=== PATIENT | male | born 1980 | race Caucasian/White ===

== ENCOUNTER → 2018-09-28 16:54 | Outpatient (CLI) | payer OTHER, SELFPAY ==
--- NOTE | 2018-09-28 17:05 | RAD_ITS ---
HISTORY: LEFT SHOULDER PAIN S/P LIFTING INJURY X2 MONTHS AGO COMPARISON: None FINDINGS: XR Shoulder 4 views No fracture or bony abnormality. The left glenohumeral relationship appears normal. Left AC joint is preserved. No soft tissue calcifications. IMPRESSION: Normal exam, left shoulder. at 9225 Reported and signed by: Jerry Amin MD Electronically Signed: Jerry Amin, at 3:23 EST Tel , Service support , RAD/Shoulder min 2 Views
--- OUTSIDE RECORDS SUMMARY | 2018-11-24 03:08 | XMS RPT_ITS | Continuity of Care Document ---
:1980 Author Organization [facility] Address [facility] [address] Phone Care Team Providers Name Role Phone Katherine NASCIMENTO, Pearl Unavailable Benitez MORE, Vesna Allen Unavailable Ryan Becerra Unavailable Unavailable Slamarjan DRY JANITOR, Nirali Unavailable Unavailable Unavailable Unavailable Problems Name Dates Details Actinic keratosis (L57.0, 702.0) Status: Active BIPOLAR DISORDER, NOS (296.7) Comments: Dr. muse. send him message. doing well. Status: Active BMI 25.0-25.9,adult (Z68.25, V85.21) Status: Active Bronchitis (J40, 490) Status: Active BRONCHITIS, NOS (490.) (490) Status: Active Condyloma (A63.0, 078.11) Status: Active Congestion of nasal sinus (R09.81, 478.19) Status: Active Cough (R05, 786.2) Status: Active Encounter for routine history and physical exam for male (Z00.00, V70.0) Comments: told see every few years. nikolay about fertility because starting to have children. 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 condyloma vs other Status: Active Sore throat (J02.9, 462) Status: Active Unilateral inguinal hernia without obstruction or gangrene, recurrence not specified (K40.90, 550.90) Status: Active Medications Name Dates Details Depakote ER 250 MG Oral Tablet Extended Release 24 Hour Active daily (250 MG) Comments: Sugey Stinger RX Meloxicam 7.5 MG Oral Tablet 1 (one) Tablet daily for 0 days Quantity: 30 {Tablet} Refills: 0 Ordered:28-Sep-2018 Nita Murphy CNP, CNP, Mary E Start : 28-Sep-2018 Active Comments:with food Wellbutrin XL 150 MG Oral Tablet Extended Release 24 Hour daily (150 MG) Active Comments:Sugey Stinger rx BIAXIN XL PAC, 500MG (Oral Tablet Extended Release 24 Hour) 2 (two) Tablet ER 24HR daily for 10 days Quantity: 20 {Tablet_ER_24HR} Refills: 0 Ordered:02-Feb-2011 Kathia Kelly DO Start : 02-Feb-2011 End : 12-Feb-2011 Inactive CHERATUSSIN AC, 100-10MG/5ML (Oral Syrup) 1 Syrup q 6 hr prn for 0 days Quantity: 60 {Milliliter} Refills: 0 Ordered:02-Feb-2011 Sissy Faria LPN Start : 04-Dec-2010 End : 02-Feb-2011 Inactive Comments:sixty HYCODEN (Oral Syrup) (Free Text) 1 Teaspoon(s) q 6 hr prn for 0 days Quantity: 60 {Milliliter} Refills: 0 Ordered:25-Dec-2011 MUMTAZ Lazaro Start : 02-Feb-2011 End : 25-Dec-2011 Inactive Comments:sixty KEFLEX, 500MG (Oral Capsule) 1 (one) Capsule q12h for 7 days Quantity: 14 {Capsule} Refills: 0 Ordered:01-Jan-2014 Nita Murphy CNP, CNP, Mary E Start : 01-Jan-2014 End : 08-Jan-2014 Inactive PROVENTIL HFA, 108 (90 Base)MCG/ACT (Inhalation Aerosol Solution) 1 (one) Aerosol Soln 2 puffs bid for 0 days Quantity: 1 {Aerosol_Soln} Refills: 0 Ordered:28-Jan-2009 MUMTAZ Lazaro Start : 28-Jan-2009 End : 21-Oct-2009 Inactive RELAFEN, 750MG (Oral Tablet) 2 (two) Tablet QD for 0 days Quantity: 30 {Tablet} Refills: 1 Ordered:27-Dec-2009 Franchesca Jones Start : 21-Oct-2009 Inactive RISPERDAL, 0.5MG (Oral Tablet) 1 Tablet QD for 0 days Refills: 0 Ordered:15-Oct-2014 Holly Stephenson Start : 21-Oct-2009 End : 15-Oct-2014 Inactive VICODIN, 5-500MG (Oral Tablet) 1 to 2 tabs q 6hrs, prn for 0 days Refills: 0 Ordered:05-Jan-2008 Sissy Faria LPN End : 05-Jan-2008 Inactive Augmentin 875-125 MG Oral Tablet 1 (one) Tablet bid for 0 days Quantity: 28 {Tablet} Refills: 0 Ordered:08-Feb-2017 Nirali Smith LPN Start : 18-Oct-2015 End : 08-Feb-2017 Discontinued Depakote 500 MG Oral Tablet Delayed Release 1 1/2 QD for 0 days Refills: 0 Ordered:08-Feb-2017 SlaTerrance phillip LPNa End : 08-Feb-2017 Discontinued FLEXERIL, 10MG (Oral Tablet) 1 (one) Tablet Twice daily for 0 days Quantity: 20 {Tablet} Refills: 0 Ordered:05-Jan-2008 MUMTAZ Lazaro Start : 05-Jan-2008 End : 10-Feb-2008 Discontinued GUAIATUSSIN AC, 100-10MG/5ML (Oral Syrup) 1 Syrup 1 tsp qhs for 0 days Quantity: 6 {Ounce(s)} Refills: 0 Ordered:28-Jan-2009 Kathia Kelly DO Start : 28-Jan-2009 End : 02-Feb-2011 Discontinued Comments:This order discontinued per [facility]. GUAIATUSSIN AC, 100-10MG/5ML (Oral Syrup) 1 Syrup qhs prn for 0 days Quantity: 6 {Ounce(s)} Refills: 0 Ordered:3-Feb-2011 Sissy Faria XUAN Start : 20-Jan-2010 End : 04-Dec-2010 Discontinued Comments:This order discontinued per [facility]. LODINE XL, 400MG (Oral Tablet Extended Release 24 Hour) 2 (two) Tablet ER 24HR Daily for 0 days Quantity: 30 {Tablet_ER_24HR} Refills: 0 Ordered:05-Jan-2008 MUMTAZ Lazaro Start : 05-Jan-2008 End : 10-Feb-2008 Discontinued Mucinex 600 MG Oral Tablet Extended Release 12 Hour 1 (one) Tablet ER 12HR Tablet ER 12HR bid for 0 days Quantity: 30 {Tablet} Refills: 0 Ordered:08-Feb-2017 Nirali Smith LPN Start : 15-Oct-2014 End : 08-Feb-2017 Discontinued WELLBUTRIN, 100MG (Oral Tablet) 1 1/2 BID for 0 days Refills: 0 Ordered:08-Feb-2017 Nirali Smith LPN End : 08-Feb-2017 Discontinued Comments:This order discontinued per [facility]. Allergies and Adverse Reactions Name Dates Details No Known Drug Allergies (Allergy) Status: Active Past Medical History Name Dates Details Dysuria (R30.0, 788.1) Comments: ? STD ? urethritis?new condom Status: Resolved as of 21-Mar-2009 genital warts Comments: did cryotx tell risk benefit. not want aldara talk about all the causes and about it Status: Inactive as of 21-Oct-2009 Hand trauma (S69.90XA, 959.4) Comments: rt thumb secondary to drill bit Status: Inactive as of 15-Oct-2014 Muscle spasm (M62.838, 728.85) Status: Inactive as of 21-Mar-2009 Neck pain (M54.2, 723.1) Status: Inactive as of 21-Mar-2009 Neoplasm of uncertain behavior of skin (D48.5, 238.2) Comments: not resolve with cryotherapy. remove and send. 6 mm Status: Inactive as of 21-Mar-2009 Sebaceous cyst (L72.3, 706.2) Comments: no evidence of infection - has doubled in size - will referral for removal- referral office to find facial plastics doctor in [place] or [place] Status: Resolved as of 21-Mar-2009 Shoulder pain (M25.519, 719.41) Status: Inactive as of 21-Mar-2009 Family History Unknown Family Member Name Dates Details First Degree Relatives Comments: ETOH, Cancer Status: Active Social History Name Dates Details Caffeine Use Comments: 2 QD Status: Active Exercise History Comments: None Status: Active Living Situation Comments: Single, heterosexual Status: Active Most Recent Primary Occupation Comments: Student at [employer] Status: Active No Drug Use Status: Active Non Drinker/No Alcohol Use Status: Active Tobacco Use Comments: / pk QD Status: Active Vital Signs Date Test Result Details [id number] Temperature 97.7 f Pulse 72 /min Comments: Pattern: Regular Respiration Rate 16 /min Comments: Pattern: Unlabored O2 SAT 97 % Comments: Room air BP Systolic 118 mm[Hg] Comments: Patient Position: Sitting; Cuff Location: Left Arm; Cuff Size: Standard BP Diastolic 78 mm[Hg] Comments: Patient Position: Sitting; Cuff Location: Left Arm; Cuff Size: Standard Weight 170 lb Height 69 in Body Mass Index Calculated 25.1 kg/m2 Body Surface Area Calculated 1.93 m2 :59 Temperature 98 f Pulse 91 /min Comments: Pattern: Regular Respiration Rate 17 /min Comments: Pattern: Unlabored O2 SAT 97 % Comments: Room air BP Systolic 122 mm[Hg] Comments: Patient Position: Sitting; Cuff Location: Left Arm; Cuff Size: Standard BP Diastolic 82 mm[Hg] Comments: Patient Position: Sitting; Cuff Location: Left Arm; Cuff Size: Standard Weight 170 lb Height 69 in Body Mass Index Calculated 25.1 kg/m2 Body Surface Area Calculated 1.93 m2 58-Vlb-234330:51 Temperature 96.8 f Comments: Method: Temporal Pulse 84 /min Comments: Pattern: Regular Respiration Rate 15 /min Comments: Pattern: Unlabored O2 SAT 97 % Comments: Room air BP Systolic 140 mm[Hg] Comments: Patient Position: Sitting; Cuff Location: Left Arm; Cuff Size: Standard BP Diastolic 96 mm[Hg] Comments: Patient Position: Sitting; Cuff Location: Left Arm; Cuff Size: Standard Weight 167 lb Height 69 in Body Mass Index Calculated 24.66 kg/m2 Body Surface Area Calculated 1.91 m2 29-Xpp-593096:00 Temperature 97.5 f Comments: Method: Oral Pulse 68 /min Comments: Pattern: Regular Respiration Rate 18 /min Comments: Pattern: Unlabored O2 SAT 98 % Comments: Room air BP Systolic 116 mm[Hg] Comments: Patient Position: Sitting; Cuff Location: Left Arm; Cuff Size: Standard BP Diastolic 78 mm[Hg] Comments: Patient Position: Sitting; Cuff Location: Left Arm; Cuff Size: Standard Weight 180 lb Height 69 in Body Mass Index Calculated 26.58 kg/m2 Body Surface Area Calculated 1.98 m2 [id number]-[id number]:05 Temperature 97.9 f Comments: Method: Oral Pulse 78 /min Comments: Pattern: Regular Respiration Rate 16 /min BP Systolic 116 mm[Hg] Comments: Patient Position: Sitting; Cuff Location: Left Arm; Cuff Size: Standard BP Diastolic 72 mm[Hg] Comments: Patient Position: Sitting; Cuff Location: Left Arm; Cuff Size: Standard Weight 165 lb Height 69 in Body Mass Index Calculated 24.37 kg/m2 Body Surface Area Calculated 1.9 m2 :52 Temperature 98.8 f Comments: Method: Oral Pulse 72 /min Comments: Pattern: Regular Respiration Rate 16 /min Comments: Pattern: Unlabored BP Systolic 112 mm[Hg] Comments: Patient Position: Sitting; Cuff Location: Left Arm; Cuff Size: Standard BP Diastolic 64 mm[Hg] Comments: Patient Position: Sitting; Cuff Location: Left Arm; Cuff Size: Standard Weight 165 lb Height 69 in Body Mass Index Calculated 24.37 kg/m2 Body Surface Area Calculated 1.9 m2 :11 Pulse 68 /min Comments: Pattern: Regular Respiration Rate 20 /min Comments: Pattern: Unlabored BP Systolic 118 mm[Hg] Comments: Patient Position: Sitting; Cuff Location: Left Arm; Cuff Size: Large BP Diastolic 68 mm[Hg] Comments: Patient Position: Sitting; Cuff Location: Left Arm; Cuff Size: Large Weight 165 lb Height 69 in Body Mass Index Calculated 24.37 kg/m2 Body Surface Area Calculated 1.9 m2 :57 Temperature 98 f Comments: Method: Oral Pulse 68 /min Comments: Pattern: Regular Respiration Rate 20 /min Comments: Pattern: Unlabored BP Systolic 136 mm[Hg] Comments: Patient Position: Sitting; Cuff Location: Left Arm; Cuff Size: Large BP Diastolic 82 mm[Hg] Comments: Patient Position: Sitting; Cuff Location: Left Arm; Cuff Size: Large :51 Temperature 97.1 f Comments: Method: Oral Pulse 64 /min Comments: Pattern: Regular Respiration Rate 14 /min Comments: Pattern: Unlabored BP Systolic 122 mm[Hg] Comments: Patient Position: Sitting; Cuff Location: Left Arm; Cuff Size: Large BP Diastolic 64 mm[Hg] Comments: Patient Position: Sitting; Cuff Location: Left Arm; Cuff Size: Large :48 Temperature 97.7 f Comments: Method: Oral Pulse 60 /min Comments: Pattern: Regular Respiration Rate 18 /min Comments: Pattern: Unlabored BP Systolic 116 mm[Hg] Comments: Patient Position: Sitting; Cuff Location: Left Arm; Cuff Size: Large BP Diastolic 72 mm[Hg] Comments: Patient Position: Sitting; Cuff Location: Left Arm; Cuff Size: Large :10 Temperature 97.9 f Comments: Method: Oral Pulse 64 /min Comments: Pattern: Regular Respiration Rate 16 /min Comments: Pattern: Unlabored BP Systolic 106 mm[Hg] Comments: Patient Position: Sitting; Cuff Location: Left Arm; Cuff Size: Large BP Diastolic 64 mm[Hg] Comments: Patient Position: Sitting; Cuff Location: Left Arm; Cuff Size: Large :24 Pulse 70 /min Comments: Pattern: Regular Respiration Rate 16 /min Comments: Pattern: Unlabored BP Systolic 118 mm[Hg] Comments: Patient Position: Sitting; Cuff Location: Left Arm; Cuff Size: Standard BP Diastolic 78 mm[Hg] Comments: Patient Position: Sitting; Cuff Location: Left Arm; Cuff Size: Standard Weight 0 lb Height 0 in Head Circumference 0.00 cm :57 Temperature 97.7 f Comments: Method: Oral Pulse 79 /min Comments: Pattern: Regular Respiration Rate 18 /min Comments: Pattern: Unlabored O2 SAT 98 % Comments: Room air BP Systolic 110 mm[Hg] Comments: Patient Position: Sitting; Cuff Location: Left Arm; Cuff Size: Large BP Diastolic 70 mm[Hg] Comments: Patient Position: Sitting; Cuff Location: Left Arm; Cuff Size: Large Weight 179.125 lb Height 69 in Body Mass Index Calculated 26.45 kg/m2 Body Surface Area Calculated 1.97 m2 Head Circumference 0.00 cm :20 Pulse 76 /min Comments: Pattern: Regular Respiration Rate 16 /min Comments: Pattern: Unlabored BP Systolic 116 mm[Hg] Comments: Patient Position: Sitting; Cuff Location: Left Arm; Cuff Size: Standard BP Diastolic 78 mm[Hg] Comments: Patient Position: Sitting; Cuff Location: Left Arm; Cuff Size: Standard Weight 0 lb Height 0 in Head Circumference 0.00 cm :43 Temperature 98.2 f Comments: Method: Oral Pulse 74 /min Comments: Pattern: Regular Respiration Rate 18 /min Comments: Pattern: Unlabored BP Systolic 118 mm[Hg] Comments: Patient Position: Sitting; Cuff Location: Left Arm; Cuff Size: Standard BP Diastolic 74 mm[Hg] Comments: Patient Position: Sitting; Cuff Location: Left Arm; Cuff Size: Standard Weight 0 lb Height 0 in Head Circumference 0.00 cm :55 Pulse 72 /min Comments: Pattern: Regular Respiration Rate 16 /min Comments: Pattern: Unlabored BP Systolic 110 mm[Hg] Comments: Patient Position: Sitting; Cuff Location: Left Arm; Cuff Size: Large BP Diastolic 62 mm[Hg] Comments: Patient Position: Sitting; Cuff Location: Left Arm; Cuff Size: Large Weight 163.5625 lb Height 69 in Body Mass Index Calculated 24.15 kg/m2 Body Surface Area Calculated 1.9 m2 Head Circumference 0.00 cm :03 Temperature 97.3 f Comments: Method: Oral Pulse 64 /min Comments: Pattern: Regular Respiration Rate 18 /min Comments: Pattern: Unlabored BP Systolic 112 mm[Hg] Comments: Patient Position: Sitting; Cuff Location: Right Arm; Cuff Size: Standard BP Diastolic 76 mm[Hg] Comments: Patient Position: Sitting; Cuff Location: Right Arm; Cuff Size: Standard Weight 0 lb Height 0 in Head Circumference 0.00 cm :16 Temperature 98.4 f Comments: Method: Oral Pulse 70 /min Comments: Pattern: Regular Respiration Rate 18 /min Comments: Pattern: Unlabored BP Systolic 110 mm[Hg] Comments: Patient Position: Sitting; Cuff Location: Left Arm; Cuff Size: Standard BP Diastolic 72 mm[Hg] Comments: Patient Position: Sitting; Cuff Location: Left Arm; Cuff Size: Standard Weight 0 lb Height 0 in Head Circumference 0.00 cm :45 Pulse 60 /min Comments: Pattern: Regular Respiration Rate 16 /min Comments: Pattern: Unlabored BP Systolic 108 mm[Hg] Comments: Patient Position: Sitting; Cuff Location: Left Arm; Cuff Size: Standard BP Diastolic 66 mm[Hg] Comments: Patient Position: Sitting; Cuff Location: Left Arm; Cuff Size: Standard Weight 163.5625 lb Height 69 in Body Mass Index Calculated 24.15 kg/m2 Body Surface Area Calculated 1.9 m2 Head Circumference 0.00 cm :24 Temperature 98.1 f Comments: Method: Oral Pulse 80 /min Comments: Pattern: Regular Respiration Rate 16 /min Comments: Pattern: Unlabored BP Systolic 120 mm[Hg] Comments: Patient Position: Sitting; Cuff Location: Right Arm; Cuff Size: Standard BP Diastolic 62 mm[Hg] Comments: Patient Position: Sitting; Cuff Location: Right Arm; Cuff Size: Standard Weight 0 lb Height 0 in Head Circumference 0.00 cm Results Date Description Value Details [id number] SILVIO CULTURE-OTHER (49287) Comments: PATIENT NOT FASTINGPERFORMED BY: ELLI [facility] [id number] [facility] [id number] Information: SRC:THRT [id number] Result 1 RRF (Normal) Comments: Routine respiratory dionicio Upper Respiratory Culture Final report (Normal) 27-Kot-[id number]:53 Rapid Strep Test, Office (54298) Rapid Strep Test, Office Negative (Normal) 58-Tkf-506087:01 KNEE,4 OR MORE VIEWS (MT) Radiology Report See Note (Normal) Comments: Exam Number: [id number] ATTENTION: THIS REPORT NEEDS FURTHER REVIEW DID YOU WANT TO INCLUDE THE NAME OF REPORT? HISTORY Right knee pain. Right Knee Xray AP, lateral, PA and sunrise views of right knee total 4 images. FINDINGS/IMPRESSIONNo evidence of acute fracture or dislocation. No significant jointeffusion. No significant degenerative changes. Clinical correla tionis advised. If symptoms persist, knee MRI may be considered asclinically necessary. Reported By: Jonny Chavarria :48 A/C JTS,CHICHO W OR W/O WTS Radiology Report See Note (Normal) Comments: Exam Number: [id number] RIGHT SHOULDER/BILATERAL ACROMIOCLAVICULAR JOINTS CLINICAL INFORMATIONFall. Pain. TECHNIQUEAP views of both acromioclavicular joints were obtained in neutralposition and with kenny ghtbearing. Four images of the right shoulder were obtained. FINDINGSThe acromioclavicular joints appear symmetric. There is no evidenceof separation or widening of the acromioclavicular joints. Nocla vicular displacement is seen. The study of the right shoulder demonstrates no fracture ordislocation. Glenohumeral and acromioclavicular joints areunremarkable. No focal bone lesion is seen. There is no soft tissuecalcification evident. IMPRESSIONNegative examination of the right shoulder and bilateralacromioclavicular joints. Reported By: ORLANDO MARI M.D. 40-Dik-17852:42 SHOULDER,MIN 2 VIEWS Radiology Report See Note (Normal) Comments: Exam Number: [id number] RIGHT SHOULDER/BILATERAL ACROMIOCLAVICULAR JOINTS CLINICAL INFORMATIONFall. Pain. TECHNIQUEAP views of both acromioclavicular joints were obtained in neutralposition and with kenny ghtbearing. Four images of the right shoulder were obtained. FINDINGSThe acromioclavicular joints appear symmetric. There is no evidenceof separation or widening of the acromioclavicular joints. Nocla vicular displacement is seen. The study of the right shoulder demonstrates no fracture ordislocation. Glenohumeral and acromioclavicular joints areunremarkable. No focal bone lesion is seen. There is no soft tissuecalcification evident. IMPRESSIONNegative examination of the right shoulder and bilateralacromioclavicular joints. Reported By: ORLANDO MARI M.D. 38-[id number]:35 Urinalysis, Office ([id number]) UA - BILIRUBIN Negative (Normal) UA - BLOOD Non Hemolyzed Trace (Normal) UA - GLUCOSE Negative (Normal) UA - KETONES Negative mg/dL (Normal) UA - LEUKOCYTE ESTERASE Negative (Normal) Comments: aw UA - NITRITE Negative (Normal) UA - PH 6.5 (Normal) UA - PROTEIN Negative mg/dL (Normal) UA - SPECIFIC GRAVITY 1.015 (Normal) URINE UROBILINGN YULIET TIMED Normal mg/dL (Normal) 84-Bwq-59712:00 CH/GC DNA [id number] CHLAM DNA 32776 SeeNote (Normal) Comments: Result: Negative GC DNA PROBE SeeNote (Normal) Comments: Result: Negative Test valid for male urethral and female endocervicalspecimens only. Plan of Care Name Dates Details Instructions BMI 25.0-25.9,adult : Follow up if no improvement or if symptoms worsen Indication: BMI 25.0-25.9,adult Left shoulder pain : Eprescribed prescriptions (G8553) Indication: Left shoulder pain Condyloma : Histofreeze - Wart Indication: Condyloma Skin lesion : Eprescribed prescriptions (G8553) Indication: Skin lesion Sinusitis, acute : Eprescribed prescriptions (G8553) Indication: Sinusitis, acute Hand trauma : Follow up if no improvement or if symptoms worsen Indication: Hand trauma BRONCHITIS, NOS (490.) : *URI Treatment Indication: BRONCHITIS, NOS (490.) BRONCHITIS, NOS (490.) : *URI Symptoms Indication: BRONCHITIS, NOS (490.) BRONCHITIS, NOS (490.) : *Antibiotic Usage Education - Male Indication: BRONCHITIS, NOS (490.) BRONCHITIS, NOS (490.) : *URI Treatment Indication: BRONCHITIS, NOS (490.) Bronchitis : *URI Treatment Indication: Bronchitis Bronchitis : *URI Symptoms Indication: Bronchitis Bronchitis : *Antibiotic Usage Education - Female Indication: Bronchitis Actinic keratosis : Shave Biopsy with Epi Indication: Actinic keratosis Bronchitis : *URI Treatment Indication: Bronchitis Bronchitis : URI Symptoms Indication: Bronchitis Neoplasm of uncertain behavior of skin : Shave Biopsy without Epi Indication: Neoplasm of uncertain behavior of skin Muscle spasm : exercises Indication: Muscle spasm Planned Observations CULTURE CHLAMYDIA ([id number])Indication: Dysuria On: 88-Pdd-162193:38 Request CULTURE, GONOCOCCUS ([id number])Indication: Dysuria On: 02-Ofm-578183:38 Request Planned Procedures Radiology - Shoulder - LeftBy: Katherine On: 28-Sep-2018 Intent Nita NASCIMENTO CNP, Mary E SPECIMEN HNDLNG/TRNSPRT, OFFC > LAB On: 18-Oct-2015 Intent ([id number])By: Maryanne Mota DO TD Injection , IM (40630)By: Katherine On: 01-Jan-2014 Intent Nita NASCIMENTO CNP, Mary E Comments: lot # [id number] 07/15/[id number]- 0.5MLCHenderson DRY JANITOR Eprescribed prescriptions (G8553)By: On: 02-Feb-2011 Intent Robin MG Kathia Radiology - Knee - RightBy: Bonezzi On: 21-Oct-2009 Intent Vesna MORE Inhaler Demonstration ([id number])By: On: 28-Jan-2009 Intent Nita Murphy CNP, CNP, Mary E Pulse Oximetry ([id number])By: Katherine NASCIMENTO, On: 28-Jan-2009 Intent Nita Patel CNP Aerosol Treatment ([id number])By: Katherine On: 28-Jan-2009 Intent Nita NASCIMENTO CNP, Mary E Radiology - Shoulder - RightBy: Fast On: 18-Dec-2007 Intent Maryanne MG Comments: with ac joints Instructions Name Dates Details Left shoulder pain : How to access health information online Indication: Left shoulder pain Left shoulder pain : How to access health information online - Detail Indication: Left shoulder pain Left shoulder pain : Patient Instructions Indication: Left shoulder pain Skin lesion : How to access health information online Indication: Skin lesion Skin lesion : How to access health information online - Detail Indication: Skin lesion Skin lesion : Patient Instructions Indication: Skin lesion Sinusitis, acute : Patient Instructions Indication: Sinusitis, acute Hand trauma : Patient Instructions Indication: Hand trauma Encounters Office Visit On: 28-Sep-2018 15:51 Encounter Reason: Shoulder Problem - The patient is left hand dominant. The injury involved the left shoulder. Symptoms include shoulder pain and decreased range of motion. Symptoms are located in the left shoulder. Ther End: 28-Sep-2018 16:23 e is no radiation. Onset was sudden 3 week(s) ago. Symptoms are exacerbated by motion at the shoulder, internal rotation of the shoulder and external rotation of the shoulder. Symptoms are relieved by u se of a sling. Note for Shoulder problem: Left shoulder pain x 3 weeks after lifting son age 4 weighs 35 lbs.Then over worked it againEncounter Diagnosis: Nonsmoker, BMI 25.0-25.9,adult, Left shoulder pain [facility] Office Visit On: 08-Feb-2017 14:49 Encounter Reason: Skin Lesions - Symptoms include multiple skin lesions (possibly multiple). Lesion(s) are located on the right trunk area. The patient describes the lesion(s) as painless. Onset was 3 month(s) ago. The symptoms occur constantly. End: 08-Feb-2017 15:28 Encounter Diagnosis: BMI 25.0-25.9,adult, Nonsmoker, Skin lesion, Condyloma [facility] Office Visit On: 18-Oct-2015 11:45 Encounter Reason: Cold Symptoms - Symptoms include nasal congestion, runny nose, sore throat, hoarseness, dry cough, productive cough and headache, while symptoms do not include facial pressure or facial pain. Onset was End: 20-Oct-2015 22:28 gradual 6 day(s) ago. The symptoms occur constantly. The patient describes this as worsening. Associated symptoms do not include ear pain, wheezing, shortness of breath, nausea, vomiting, diarrhea, feve r or chills. The patient is not currently being treated for this problem. Note for Cold symptoms: bp up but took meds and drank tea this am so think this why - has potential exposureEncounter Diagnosis: Sore throat, Sinusitis, acute [facility] Office Visit On: 15-Oct-2014 15:50 Encounter Reason: Headache - Symptoms include new onset headache and nausea (when headache ). The headache is located in the right temporal area. The patient describes the pain as aching and throbbing. Onset was 5 day(s) End: 15-Oct-2014 16:43 ago. The patient describes this as worsening.Encounter Diagnosis: SINUSITIS, ACUTE NOS (461.9), Congestion of nasal sinus, Headache [facility] Office Visit On: 01-Jan-2014 17:01 Encounter Reason: Trauma - The onset of the trauma has been sudden and has been occurring in a persistent pattern for 5 days. The course has been constant. The trauma is described as moderate.Encounter Diagnosis: Paronychia of thumb, Hand trauma End: 02-Jan-2014 8:15 [facility] Office Visit On: 25-Dec-2011 8:45 Encounter Reason: Follow up for chronic medical issues - The patient feels well with no complaints, has good energy level and is sleeping well. Patient has been compliant with instructions. Current medication use: no jyotsna End: 25-Dec-2011 9:51 e effects and compliant with dosing regimen. Patient sleeps 7 hours per night. The medical issues the patient is following up for include depression (bi-polar disorder) and other (Knee pain).Encounter Diagnosis: BIPOLAR DISORDER, NOS (296.7), Well Male Exam (V70.0) [facility] Office Visit On: 02-Feb-2011 16:11 Encounter Reason: Cough - The onset of the cough has been acute (x 5-6 days). The cough is characterized as productive of mucoid sputum. The amount of sputum produced is less than a half a cup per day. The cough occurs a End: 02-Feb-2011 16:39 ll the time (usually worse at night). The symptoms are aggravated by supine posture and particular position, but not by meals. The symptoms have been associated with hoarseness and runny nose, while the symptoms have not been associated with fever or headache. the color of the sputum is yellowish.Encounter Diagnosis: BRONCHITIS, NOS (490.) [facility] Office Visit On: 04-Dec-2010 7:55 Encounter Reason: Cough - The onset of the cough has been sudden and has been occurring in a persistent pattern for 3 days. The course has been constant. The cough is characterized as productive of mucoid sputum. The viviana End: 04-Dec-2010 8:34 unt of sputum produced is scanty. The cough occurs all the time. The symptoms are aggravated by supine posture and particular position, but not by meals. The symptoms have been associated with sore thro at and wheezing, while the symptoms have not been associated with fever, headache, hoarseness or runny nose.Encounter Diagnosis: BRONCHITIS, NOS (490.) [facility] Office Visit On: 20-Jan-2010 8:50 Encounter Reason: Cough - The onset of the cough has been acute (x 5-6 days). The cough is characterized as productive of mucoid sputum. The amount of sputum produced is less than a half a cup per day. The cough occurs a End: 20-Jan-2010 9:13 ll the time (usually worse at night). the color of the sputum is yellowish. Encounter Diagnosis: BRONCHITIS, NOT SPECIFIED ACUTE OR CHRONIC (490.), Cough (786.2) [facility] Office Visit On: 27-Dec-2009 8:47 Encounter Diagnosis: Actinic keratosis (702.0) End: 27-Dec-2009 9:17 [facility] Office Visit On: 13-Dec-2009 8:07 Encounter Reason: New skin lesions - The onset of the skin lesions has been gradually and they have been occurring for 6 months. The course has been unchanging in size. The skin lesions are characterized as red. The skin End: 13-Dec-2009 8:37 lesions are located over the lower extremity (RLE- small scabbed area that has not healed since Jul). There has been associated itching. Encounter Diagnosis: Actinic keratosis (702.0) [facility] Office Visit On: 21-Oct-2009 10:21 Encounter Reason: Knee Pain - The onset of the knee pain has been variable and has been occurring in an intermittent pattern for 1 months. The course has been gradually worsening. The knee pain is mild to moderate. The k End: 21-Oct-2009 10:49 nee pain is characterized as a dull aching. The knee pain is described as being located in the entire knee (right). The knee pain is aggravated by physical activity ,work duties ,twisting ,squatting ,kn eeling ,climbing and stairs. There were no relieving factors. The symptoms have been associated with catching ,decreased ROM ,popping/crepitus ,difficulty arising from chair and difficulty going up and down stairs. Note for Knee Pain: get crepitus. no lock pop or give out. was on feet with bad shoes for 12 hours few days and got bad. did play soccor and then hacky sack in past and knee hurtEncounter Diagnosis: Knee pain (719.46) [facility] Office Visit On: 28-Jan-2009 7:49 Encounter Reason: Cough - The onset of the cough has been acute (). The cough is characterized as dry. The amount of sputum produced is scanty. The cough occurs all the time. The symptoms are aggravated by supine End: 28-Jan-2009 9:00 posture. The symptoms have been associated with runny nose, while the symptoms have not been associated with dysphagia ,dyspnea or headache. the color of the sputum is yellowish (minimal). Encounter Diagnosis: BRONCHITIS, NOT SPECIFIED ACUTE OR CHRONIC (490.), Cough (786.2) [facility] Office Visit On: 09-Oct-2008 16:09 Encounter Diagnosis: Lesion-Unknown behavior (238.2) End: 09-Oct-2008 16:53 [facility] Office Visit On: 10-Feb-2008 9:39 Encounter Reason: Penile lesions - The onset of the penile lesions has been acute and they have been occurring in a persistent pattern for 4 months. The course has been increasing (has increased in size since September ). End: 10-Feb-2008 10:00 The penile lesions are described as moderate. Encounter Diagnosis: genital warts [facility] Office Visit On: 05-Jan-2008 15:53 Encounter Reason: Neck pain - The onset of the neck pain has been sudden and has been occurring in an intermittent pattern for 2 days. The course has been rapidly worsening. The neck pain is described as a severe sharp s End: 05-Jan-2008 16:16 tabbing. The neck pain is described as being located in the sides of cervical spine (left). The back pain does not radiate The back pain is aggravated by twisting. The pain has not been relieved by anyt ashlee. There have been no previous diagnostic tests. There have been no previous evalutations. There has been no previous physical therapy. There has been no previous spine surgery. There has been no use of assistive devices. Previous medications have included Ibuprofen. Encounter Diagnosis: Neck pain (723.1), Muscle spasm (728.85) [facility] Office Visit On: 16-Dec-2007 7:53 Encounter Reason: Shoulder Pain - The onset of the shoulder pain has been sudden following an incident not at work (ice skating and fell) and has been occurring in a persistent pattern for 1 weeks. The course has been wi End: 18-Dec-2007 18:07 thout change. The shoulder pain is moderate to severe. The shoulder pain is characterized as a sharp stabbing (dull too). The shoulder pain is described as being located in the right shoulder. The shoul rebeca pain is aggravated by overhead activity and lifting. Relieving factors include rest ,ice and medication (vicoden). Associated features include: muscle stiffness ,painful ROM ,decreased ROM ,difficul ty overhead activities ,difficulty dressing oneself and difficulty with pulling, but not muscle swelling ,muscle weakness ,popping/crepitus ,fever ,chills or difficulty combing hairs. Note for Shoulder Pain: he didnt fall on outstretched arm but fell right on shoulder - went to er on the and they took an xray and they didnt think a fracture -- he feels a little better-- he took motrin-- didnt bruiseEncounter Diagnosis: Shoulder pain (719.41) [facility] Office Visit On: 20-Oct-2007 10:15 Encounter Diagnosis: Dysuria (788.1), Inguinal Hernia, Unilateral, No Obstruction or Gangrene (550.90) End: 20-Oct-2007 10:39 [facility] Visit On: 22-Jun-2007 15:45 Encounter Reason: Lumps - The onset of the lumps has been sudden and has been occurring in a persistent pattern for 3 weeks. The course has been constant. The lumps are described as moderate. Encounter Diagnosis: Sebaceous cyst (706.2) End: 22-Jun-2007 16:17 [facility] Office Visit On: 30-Mar-2007 13:24 Encounter Reason: Hearing loss - The onset of the hearing loss has been gradual (traveled with a band for yrs. did not wear earplugs. 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 The course has been constant. The hearing loss is described as being located in both ears. The symptoms have been associated with family history of deafness (maternal grand parents-hearing loss) ,foreign body in ear (at times feels like something is crawling in his ear) ,noisy environment ,onset after swimming and tinnitus. Note for Hearing loss: has to say what very f requently. It is sometimes hard to hear girlfriend talk. Gets ringing. Left year feels like something is in ear. 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
--- OUTSIDE RECORDS SUMMARY | 2018-11-24 03:09 | XMS RPT_ITS ---
:1980 Author Organization [facility] Care Team Providers Name Role Phone Nita Murphy Attending Unavailable Vesna Marquis MD Referring Unavailable Nita Murphy Consulting Unavailable Nita Murphy Attending Unavailable Nita Murphy Referring Unavailable Vesna Marquis Primary Care Unavailable Nita Murphy Admitting Unavailable Nita Murphy Attending Unavailable Vesna Marquis Primary Care Unavailable Donna Goodrich Admitting Unavailable Donna Goodrich Attending Unavailable Vesna Marquis Primary Care Unavailable PROBLEMS PROBLEMS DATE TYPE CONDITION / CODE ATTENDING STATUS SOURCE 09/28/2018 Unknown M25.512 - Pain Nita Murphy in left shoulder Community [facility] Hospital M25.512(ICD-10) Repository PROCEDURES PROCEDURES No Procedure Records FoundRESULTS RESULTS CBC W/ AUTO DIFF Collected: 10/07/2018 Status: F Source: SIKH 3:33 PM [facility] REPOSITORY TYPE CODE TESTS RESULT OUT OF RANGE REFERENCE UNITS LAB 93676166(L 3.6-11.0 E3/mcL OINC) Normal WBC 6.7 LAB 05414822(L 3.90-6.10 E6/mcL OINC) Normal RBC 4.49 LAB 37017270(L 13.5-18.0 G/DL OINC) Normal Hgb 14.3 LAB 67502932(L 42.0-52.0 % OINC) Normal Hct 42.2 LAB 89288456(L 11.5-14.5 % OINC) Normal RDW 12.9 LAB 06243418(L 27.0-31.0 pg OINC) High MCH 31.8 LAB 97579505(L 33.0-37.0 G/DL OINC) Normal MCHC 33.8 LAB 73534347(L 78.0-100.0 fL OINC) Normal MCV 93.9 LAB 40876546(L 7.4-11.0 fL OINC) Normal MPV 8.3 LAB 61951980(L 130-400 E3/mcL OINC) Normal Platelet 254 Performed By: #### [id number] #### ADOLPH [employer] [address] [place] [address] AUTO DIFF Collected: 10/07/2018 Status: F Source: SIKH 3:33 PM [facility] REPOSITORY Order Comment: Order Added by Discern Expert. TYPE CODE TESTS RESULT OUT OF RANGE REFERENCE UNITS LAB 64548044(L 37.0-75.0 % OINC) Normal Neutro Auto 57.9 LAB 89891480(L 20.0-55.0 % OINC) Normal Lymph Auto 31.9 LAB 34467463(L 0.0-10.0 % OINC) Normal [place] Auto 7.3 LAB 84400532(L 0.0-11.0 % OINC) Normal Eos Auto 2.6 LAB 22058649(L 0.0-2.0 % OINC) Normal Basophil Auto 0.3 LAB 32828567(L 1.4-6.5 E3/mcL OINC) Normal Neutro 3.9 Absolute LAB 66592421(L 1.2-3.4 E3/mcL OINC) Normal Lymph Absolute 2.1 LAB 83844435(L 0.0-0.7 E3/mcL OINC) Normal [place] Absolute 0.5 LAB 38046131(L 0.0-0.7 E3/mcL OINC) Normal Eos Absolute 0.2 LAB 39027896(L 0.0-0.2 E3/mcL OINC) Normal Basophil 0.0 Absolute Performed By: #### [id number] #### ADOLPH [employer] [address] [place] [address] CMP Collected: 10/07/2018 Status: F Source: SIKH 3:33 PM [facility] REPOSITORY TYPE CODE TESTS RESULT OUT OF RANGE REFERENCE UNITS LAB 88435667(L 70-99 mg/dL OINC) Glucose Normal Lvl 89 LAB 60965557(L 6-23 mg/dL OINC) BUN Normal 13 LAB 0474641(LO 0.5-1.3 mg/dL INC) Normal Creatinine 0.9 LAB 05310012(L 8.6-10.3 mg/dL OINC) Calcium Normal Lvl 9.6 LAB 52928782(L 136-145 mEq/L OINC) Sodium Normal Lvl 140 LAB 86089858(L 3.5-5.3 mEq/L OINC) Normal Potassium Lvl 4.1 LAB 03772826(L 98-107 mEq/L OINC) Chloride Normal 104 LAB 07734080(L 21.0-32.0 mEq/L OINC) CO2 Normal 31.0 LAB 95847463(L 33-120 Int._Unit/ OINC) L Alk Phos Normal 55 LAB 30042749(L 0.00-1.20 mg/dL OINC) Bili Normal Total 0.26 LAB 93349050(L 3.4-5.0 gm/dL OINC) Albumin Normal Lvl 4.7 LAB 71591042(L 6.4-8.2 gm/dL OINC) Total Normal Protein 6.6 LAB 77493580(L 10-52 Int._Unit/ OINC) L ALT Normal 11 LAB 57223674(L 9-39 Int._Unit/ OINC) L AST Normal 13 LAB 26416071(L 5.4-30.0 ratio OINC) Normal BUN/Creat Ratio 14.4 LAB 10799087(L 10-20 mEq/L OINC) Low AGAP 9 LAB 35601814(L 2.0-4.0 G/DL OINC) Globulin Normal 2.0 LAB 78629425(L 1.1-1.9 ratio OINC) High A/G Ratio 2.5 Performed By: #### [id number] #### ADOLPH [employer] [address] [place] [address] EGFR Collected: 10/07/2018 Status: F Source: SIKH 3:[address] [facility] REPOSITORY Order Comment: Order added by Discern Expert. TYPE CODE TESTS RESULT OUT OF RANGE REFERENCE UNITS LAB 62347486(LO mL/min/1.73 INC) m2 Normal eGFR >60 LAB 20706915(LO mL/min/1.73 INC) m2 Normal eGFR AA >60 Performed By: #### [id number] #### ADOLPH [employer] [address] [place] [address] VALPROIC ACID Collected: 10/07/2018 Status: F Source: SIKH 3:33 PM [facility] REPOSITORY TYPE CODE TESTS RESULT OUT OF REFERENCE UNITS RANGE LAB 02180674(LO 50-100 microgram/m INC) Low L Valpro Acid 24 Lvl Performed By: #### [id number] #### ADOLPH [employer] [address] [place] [address] SHOULDER MIN 2 VIEWS Observed: 09/28/2018 Status: F Source: CHASITY 5:05 PM [facility] [place] [facility] Imaging Services [address] [place] [address] Shoulder min 2 Views MR#: [id number] Acct: [id number] Name: GREG MCGEE Rep #: [id number] : 1980 M 38 From: Jerry Amin MD PCP: Vesna Marquis MD Status: REG CLI Study: Shoulder min 2 Views Date of Exam: 09/28/18 Exam# [id number] Ordering Dr: Nita Murphy PRINT JOURNALIST-C HISTORY: LEFT SHOULDER PAIN S/P LIFTING INJURY X2 MONTHS AGO COMPARISON: None FINDINGS: XR Shoulder 4 views No fracture or bony abnormality. The left glenohumeral relationship appears normal. Left AC joint is preserved. No soft tissue calcifications. IMPRESSION: Normal exam, left shoulder. at 0325 Reported and signed by: Jerry Amin MD Electronically Signed: Jerry Amin, at 3:23 EST Tel , Service support , RAD/Shoulder min 2 Views CC: Nita Murphy PRINT JOURNALIST; Vesna Marquis MD Check Airman: Signed ALLERGIES ALLERGIES DATE TYPE / CODE NAME / CODE REACTION SEVERITY SOURCE Drug/281910 No Known Rastafari 003(SNOMED Medication [facility]) Allergies System Repository ENCOUNTERS ENCOUNTERS ADMIT/DISCHARGE ACCOUNT NUMBER ADMITTING ENCOUNTER LOCATION SOURCE CLASS 10/07/[id number] Nita Murphy [facility] Repository 10/07/2018/10/07/[id number] Joleen, Ambulatory Rastafari Rastafari [facility] ding[facility] Repository 10/07/2018 [id number] Ambulatory [address] [place] [address] Repository 09/29/2018 [id number] Ambulatory Building:[facility] Repository 09/28/2018 [id number] Ambulatory [facility] ding:RAD Repository PAYERS PAYERS ENCOUNTER GUARANTOR PAYER SUBSCRIBER SOURCE 10/07/2018 GREG Lu Primary GREG FROSTOB: Insurance:AETFrances DENGFERNANDOOB: [facility] Number: Effective [id number] System [facility], Date:2018-10-07 [facility] [id number] [place], [place] [address]Tel: Name:CD:[id number]Gqr: [address] [place] [address] (HP) [phone]: [phone]) (HP) [phone] (WP) 10/07/2018 GREG Primary GREG VILCHISINDOB: Insurance:AETNABasil DENGFERNANDOOB: [facility] Number: Effective [id number] System [facility], Date:2018-10-07 [facility] [id number] [id number]: Name:CD:[id number] [facility] [address]Cvo: [address] [place] [address] (HP) [phone]: [phone] (HP) [phone] (WP) 10/07/2018 [facility] GRIFFINDOB: Insurance:AetbeverlyJohnhenrietta VILCHISINDOB: Hospitals Number: [id number] [facility], [id number] 5 [facility] [id number]: Date:Plan Name:[place], [place] [id number]: (HP) (HP) 10/07/2018 [facility] Insurance:AetnaPolpablohal GRIFFINDOB: Hospitals Number: [id number] Repository [id number] 5 [facility] Date:Plan Name:[place], [place] [id number]: (HP) 09/29/2018 [facility] Primary [facility] [place] Practices GriffinDOB: Insurance:AETFrances VilchisinDOB: Repository Number: [id number] [place] [id number] [address] [place] [address] Date:2090-51-29Ansi [place], [place] [address]Uyp: (330) Name:[facility] [address] [address]Qzw: [place] [id number]: [phone] (HP) (HP)Tel: () 09/29/2018 Secondary [facility] [place] Practices Insurance:Medical GriffinDOB: Repository [facility] [id number] Number: 5 [address] [id number] [place], [place] Date:2005-05[birth year] - [address]Swq: [phone] [id number] [phone] (HP) Name:[facility] [address] [address], [place] [id number]: 09/28/2018 [facility] Primary [facility] Chasity [id number] Insurance:AETNAPolhenrietta VILCHISINDOB: [facility], Number: [id number] [facility] [place] [address]Xbg: [id number] Repository Date:[id number] (HP) [id number] [place] [address]SC: 09/28/2018 Secondary NOT GIVENUNK [place] Insurance:SELF PAY Community [facility] Number: Effective Repository Date:2018-09-28
== END ==
LOC: RAD 16:59
PROVIDERS: Family Provider Internal Medicine; PCP Internal Medicine; Referring Provider Nurse Practitioner; Visit Provider Nurse Practitioner
DX: M25.512 Pain in left shoulder (principal)
CPT/HCPCS: 73030

== ENCOUNTER → 2024-12-22 | Outpatient (CLI) | payer OTHER, SELFPAY ==
--- NOTE | 2024-12-22 15:13 | RAD_ITS ---
PROCEDURE: RIGHT HAND, THREE VIEWS REASON FOR EXAM: Hurt while playing tug of war TECHNIQUE: 3 view(s) of the right hand COMPARISON: No relevant prior FINDINGS: An acute comminuted oblique, nondisplaced intra-articular fracture of the proximal phalanx, 4th finger. No dislocations or subluxations. Soft tissue swelling RAD/Hand Min 3 Views IMPRESSION: Acute oblique comminuted fracture involving the proximal phalanx of the 4th fin angelica with soft tissue swelling. Reading Location: [facility]
== END | disposition home or self-care (01) ==
LOC: MTRAD 15:13
PROVIDERS: PCP Internal Medicine; Referring Provider Physician Assistant Surgical; Visit Provider Physician Assistant Surgical
DX: S69.91XA Unspecified injury of right wrist, hand and finger(s), initial encounter (principal)
CPT/HCPCS: 73130